=== PATIENT | male | born 2000 | race Caucasian/White ===

== ENCOUNTER → 2020-05-10 12:16 | Outpatient (BNVA) | payer OTHER, SELFPAY | PROVIDERS: Family Provider Family Medicine; PCP Nurse Practitioner Family; Visit Provider Emergency Medicine | DX: M25.512 Pain in left shoulder (principal); M25.511 Pain in right shoulder | CPT/HCPCS: 73030 ==

== ENCOUNTER → 2020-06-07 10:23 | Outpatient (BNVA) | payer OTHER, SELFPAY | PROVIDERS: Family Provider Family Medicine; PCP Nurse Practitioner Family; Referring Provider Emergency Medicine; Visit Provider Specialist | DX: M25.511 Pain in right shoulder (principal) | CPT/HCPCS: 73030 ==

== ENCOUNTER 2020-06-21 08:43 | Outpatient (CLI) | payer OTHER, SELFPAY ==
--- NOTE | 2020-06-21 08:45 | MR_ITS ---
WS: [id number] MRI RIGHT SHOULDER HISTORY: S49.90XA - Unspecified injury of shoulder and upper arm, unspecified arm, initial encounter COMPARISON: 06/07/2020 radiographs TECHNIQUE: Multiplanar sequences of the shoulder joint are submitted. Minimal hypertrophic changes at the AC joint. No osteophytes or encroachment upon the supraspinatus t endon. No os acromion. Biceps tendon in normal position. No rotator cuff tears are identified. There is no muscle atrophy or edema. No fluid collections. 3 mm area of low signal on all sequences in the mid glenoid is probably a small bone island. No labral ab normality or joint effusion. No loose body is identified. MR/MR shoulder RT wo con* [id number] IMPRESSION: 1. Minimal AC joint hypertrophy. No encroachment. 2. No rotator cuff tear. 3. No additional bone or soft tissue abnormality appreciated.
== END 2020-06-21 08:44 | disposition home or self-care (01) ==
LOC: RADSHAW 08:45
PROVIDERS: Family Provider Family Medicine; PCP Nurse Practitioner Family; Visit Provider Specialist
DX: S49.90XA Unspecified injury of shoulder and upper arm, unspecified arm, initial encounter (principal); X58.XXXA Exposure to other specified factors, initial encounter; M25.511 Pain in right shoulder
CPT/HCPCS: 73221